=== PATIENT | female | born 1970 | race Caucasian/White ===

== ENCOUNTER 2017-03-10 14:22 | Emergency (ER) | payer OTHER ==
[~2017-03-10] VITALS: Ht 1671.3 cm; Wt 81.5 kg
[~2017-03-10 14:22] MED LIST: ANTIVERT50 MG PO; FIORICET WI1 CAPSULE PO; HYDROCODON-ACE1 EAC7 PO; KEFLEX500 MG PO; MOTRIN800 MG PO; PERCOCET 5/31 TABLET PO; PRILOSEC; PROMETHAZINE HC25 M1 PO; VALIUM5 MG PO
[2017-03-10 18:01] LABS: HEMATOCRIT 45.6 % (36.0-46.0); MCH 30.5 PG (29.0-34.0); MCHC 33.8 G/DL (30.0-36.0); MCV 90.3 FL (83-99); MEAN PLAT.VOLUME 11.6 uM^3 (9.5-12.4); PLATELET COUNT 223 K/uL (156-360); RBC DIS.WIDTH-CV 12.9 % (11.8-14.6); RBC DIS.WIDTH-SD 42.5 % (39-53); RED BLOOD COUNT 5.05 M/uL (3.80-5.20); WHITE BLOOD COUNT 7.6 K/uL (4.1-10.2)
[2017-03-10 18:10] LABS: CHLORIDE 104 mEq/L (99-109); POTASSIUM 3.8 mEq/L (3.7-5.4); SODIUM 138 mEq/L (136-147)
[2017-03-10 18:12] LABS: GLUCOSE 101 mg/dL (70-99)
[2017-03-10 18:13] LABS: ANION GAP 9 MEQ/L (2-14)
[2017-03-10 18:14] LABS: TOTAL BILIRUBIN 0.4 mg/dL (0.0-1.0)
[2017-03-10 18:16] LABS: ALKALINE PHOSPHATASE 63 IU/L (3-129); GFR ESTIMATE (CALCULATED) > 59 mL/min/
[2017-03-10 18:17] LABS: UREA NITROGEN (BUN) 16 mg/dL (9-23)
[2017-03-10] MEDS ORDERED: MEDROL DOSEPAK4 MG PO (19:23)
[2017-03-10] MEDS ORDERED: ELIMITE 5% CREA60 GM TP (19:23)
[2017-03-10] MEDS ORDERED: ATARAX,VISTARIL50 MG PO (19:23)
[2017-03-10 20:00] VITALS: BP 136/118
[2017-03-11 09:03] LABS: TREPONEMA ANTIBODY NEGATIVE (NEGATIVE)
== END 2017-03-10 20:40 | disposition home or self-care (01) ==
LOC: EME 14:22
PROVIDERS: Physician Assistant
DX: R21 Rash and other nonspecific skin eruption (principal); J44.9 Chronic obstructive pulmonary disease, unspecified; F17.200 Nicotine dependence, unspecified, uncomplicated
CPT/HCPCS: 80053; 81003; 84702; 85027; 86780; 99281; 99284; J1200; J7030; Q0177; S0028